=== PATIENT | male | born 1995 | race Hispanic/Latino ===

== ENCOUNTER 2020-12-19 01:21 | Emergency (ER) | payer OTHER ==
[~2020-12-19] VITALS: Ht 175.3 cm; Wt 113.4 kg
[2020-12-19 01:54] VITALS: BP 137/91
[2020-12-19] MEDS ORDERED: PROMETHAZINE HCL 25 MG/ML 1ML AMPULE IM ONE (02:00)
[2020-12-19] MEDS ORDERED: DiphenhydrAMINE HCL 50 MG/ML VIAL IM ONE (02:00)
== END 2020-12-19 03:20 | disposition home or self-care (01) ==
LOC: EDH 01:21
DX: G43.909 Migraine, unspecified, not intractable, without status migrainosus (principal)
CPT/HCPCS: 96372 ×2; 99284; J1200; J2550